=== PATIENT | male | born 1965 | race Caucasian/White ===

== ENCOUNTER 2025-04-22 15:53 | Emergency (ER) | payer OTHER, SELFPAY ==
[2025-04-22 15:55] VITALS: BP 155/87; PULSE 81; TEMP 36.7; O2SAT 95; BMI 31.2
--- NOTE | 2025-04-22 16:12 | ED_ITS ---
HPI HPI - General Adult General Chief complaint: Skin/Abscess/Foreign Body Stated complaint: LACERATION ON RIGHT HAND Time Seen by Provider: 04/22/25 16:02 Source: patient Mode of arrival: walk-in History of Present Illness HPI narrative: 60-year-old male presents for a laceration on his right hand. This was sustained when his hand was in his dog's mouth and the patient pulled his hand away causing his hand to scrape along the dog's tooth. The dog did not actually bite him. It has been more than 10 years since a tetanus shot and he has no weakness or numbness. No other injury was sustained and this happened about an hour ago. Related Data Previous Rx's ?Medication ?Instructions ?Recorded ciprofloxacin HCl 500 mg tablet 500 mg PO Q12H #10 tab s 04/22/25 (Cipro) clindamycin HCl 300 mg capsule 300 mg PO TID 5 days #1 5 caps 04/22/25 Allergies Allergy/AdvReac Type Severity Reaction Status Date / Time Penicillins Allergy Severe Rash Verified 04/22/25 16:00 Opioid HPI Opioid Management Most Recent Opioid Data: Last Pain Scale 3 Today, 16:19 Review of Systems ROS Narrative A ten point review of systems is negative except as noted above. PFSH PFSH Social History Little interest or pleasure in doing things: not at all Feeling down, depressed, or hopeless: not at all Exam Narrative Exam Narrative: Nurses note and vital signs reviewed and patient is not hypoxic. General: The patient appears well and in no apparent distress. Patient is resting comfortably on cart. Skin: Warm, dry, no pallor noted. There is no rash noted. Head: Normocephalic, atraumatic Eye: Normal conjunctiva, no drainage Ears, Nose, Mouth, and Throat: oral mucosa is moist. Nares patent. Cardiovascular: Regular Rate and Rhythm Respiratory: Patient is in no distress, no accessory muscle use, lungs are clear to auscultation, no wheezing, rales or rhonchi Back: non-tender GI: Soft and nontender Musculoskeletal: Dorsum of his right hand shows a 3 cm linear laceration which is deep. No other wounds are present. No foreign bodies and full range of motion of his fingers is present. It is on the lateral dorsal aspect of his hand. Neurological: A&O, normal speech; fingers of his right hand have full range of motion Psychiatric: Cooperative Constitutional Vital Signs, click to edit/add: Last Vital Signs Temp 98.0 F 04/22/25 15:55 Pulse 81 04/22/25 15:55 Resp 16 04/22/25 15:55 BP 155/87 H 04/22/25 15:55 Pulse Ox 95 04/22/25 15:55 O2 Del Method Room Air 04/22/25 15:55 Course Vital Signs Vital signs: Vital Signs Temperature 98.0 F 04/22/25 15:55 Pulse Rate 81 04/22/25 15:55 Respiratory Rate 16 04/22/25 15:55 Blood Pressure 155/87 H 04/22/25 15:55 Pulse Oximetry 95 04/22/25 15:55 Oxygen Delivery Method Room Air 04/22/25 15:55 Temperature 98.0 F 04/22/25 15:55 Pulse Rate 81 04/22/25 15:55 Respiratory Rate 16 04/22/25 15:55 Blood Pressure 155/87 H 04/22/25 15:55 Pulse Oximetry 95 04/22/25 15:55 Oxygen Delivery Method Room Air 04/22/25 15:55 Medical Decision Making MDM Narrative Medical decision making narrative: The following procedure was performed by me. Local infiltration was carried out with 1% lidocaine without epinephrine resulting in complete skin anesthesia. The area was prepped with Betadine x 3 and draped sterilely. It was explored for foreign bodies and none were found. The wound was then closed with two 5-0 Ethilon sutures for skin reapproximation. No complications. The wound was partially closed because of the gaping nature. Sutures are to be removed in 10 days. Tetanus is updated and he was placed on a course of Cipro and clindamycin for prophylaxis. Treatment diagnosis and follow-up were discussed with the patient. I have no clinical evidence of neurovascular compromise. Differential Diagnosis Differential Diagnosis: Dog bite, need for tetanus immunization Discharge Plan Discharge Chief Complaint: Skin/Abscess/Foreign Body Clinical Impression: Dog bite Patient Disposition: Home, Self-Care Time of Disposition Decision: 16:32 Condition: Good Mode of Transportation: Private Vehicle Prescriptions / Home Meds: New ciprofloxacin HCl [Cipro] 500 mg tablet 500 mg PO Q12H Qty: 10 0RF clindamycin HCl 300 mg capsule 300 mg PO TID 5 Days Qty: 15 0RF Print Language: Malay Instructions: Animal Bite (ED) Additional Instructions: Sutures to be removed in 10 days Referrals: JOEY ANGEL [Primary Care Provider, Family Practice] - 1 week
[2025-04-22] MEDS: DIPHTH,PERTUSS(ACELL),TET VAC 0.5 ML SYRINGE IM (16:16)
[2025-04-22] MEDS: LIDOCAINE HCL 1% 100 MG/10 ML MDV INJ (16:16)
== END 2025-04-22 16:53 | disposition home or self-care (01) ==
PROVIDERS: Emergency Provider Emergency Medicine; PCP Family Medicine
DX: S61.451A Open bite of right hand, initial encounter (principal); W54.0XXA Bitten by dog, initial encounter; Y93.89 Activity, other specified; S61.411A Laceration without foreign body of right hand, initial encounter; Z23 Encounter for immunization
CPT/HCPCS: 90471; 99283